=== PATIENT | female | born 1955 | race Caucasian/White ===

== ENCOUNTER 2017-01-05 10:10 | Day surgery (SDC) | payer OTHER ==
[~2017-01-05] VITALS: Ht 162.6 cm; Wt 101.5 kg
[~2017-01-05 10:10] MED LIST: ASPI81TA11 PO; ATEN-100 PO; HYDR-3129 PO; LEVO150T7 PO; PERC5TAB12 PO; XANA1TAB6 PO
[2017-01-05 11:08] VITALS: BP 116/71; PULSE 64; RESP 17; TEMP 98.7; O2SAT 96
[2017-01-05] MEDS ORDERED: LEVO.1 PO (11:13)
[2017-01-05] MEDS ORDERED: ATEN25TA PO (11:13)
[2017-01-05] MEDS ORDERED: PRED10 PO (11:13)
[2017-01-05] MEDS ORDERED: ASPI81CH CHEW (11:13)
[2017-01-05] MEDS ORDERED: LORA-474 PO (11:14)
[2017-01-05] MEDS ORDERED: HYDR-3366 PO (11:14)
[2017-01-05] MEDS ORDERED: ASPIRIN 81 MG CHEW TAB PO ONE (11:15)
[2017-01-05] MEDS ORDERED: NS 1000P @30 MLS/HR (KVO) IV SCH (11:15)
[2017-01-05 11:27] LABS: AUTOMATED NEUTROPHIL # 5.2 TH/MM3 (1.8-7.7); BASOPHIL % 0.1 % (0.0-2.0); HEMATOCRIT 40.6 % (35.0-46.0); LYMPH % 11.2 % (9.0-44.0); LYMPHOCYTE # 0.7 TH/MM3 (1.0-4.8); MEAN CELL VOLUME 95.7 FL (80.0-100.0); MEAN CORPUSCULAR HEMOGLOBIN 32.3 PG (27.0-34.0); MEAN CORPUSCULAR HGB CONC 33.8 % (32.0-36.0); NEUT % 84.7 % (16.0-70.0); PLATELET COUNT 94 TH/MM3 (150-450); RED BLOOD COUNT 4.25 MIL/MM3 (4.00-5.30); RED CELL DISTRIBUTION WIDTH 13.2 % (11.6-17.2); WHITE BLOOD COUNT 6.2 TH/MM3 (4.0-11.0)
[2017-01-05 11:31] LABS: HEMO FLAGS AUTO DIFF
[2017-01-05 11:36] LABS: APTT (PATIENT) 29.2 SEC (24.3-30.1); PROTHROMBIN TIME - PATIENT 11.2 SEC (9.8-11.6)
[2017-01-05 11:53] LABS: BICARBONATE 24.5 MEQ/L (21.0-32.0); POTASSIUM 4.3 MEQ/L (3.5-5.1)
[2017-01-05] MEDS ORDERED: FAMOTIDINE 20 MG/2 ML VIAL IV PUSH SCH (12:00)
[2017-01-05] MEDS ORDERED: diphenhydrAMINE HCL 50 MG/ML VIAL IV PUSH SCH (12:00)
[2017-01-05 12:01] LABS: PLATELET ESTIMATE SMEAR LOW (NORMAL); PLATELET MORPHOLOGY NORMAL (NORMAL); SCAN/DIFF AUTO DIFF CONFIRMED
[2017-01-05] MEDS ORDERED: IOHEXOL 350 MG/ML 50 ML BTL (for Cath Lab) OTHER ONE (14:29)
[2017-01-05] MEDS ORDERED: HEPARIN-NS/PF INJ 1,000 ML ONE (14:34)
[2017-01-05] MEDS ORDERED: diphenhydrAMINE HCL 50 MG/ML VIAL ONE (14:38)
[2017-01-05] MEDS ORDERED: MIDAZOLAM HCL 2 MG/2 ML VIAL ONE (14:38)
[2017-01-05] MEDS ORDERED: FAMOTIDINE 20 MG/2 ML VIAL ONE (14:38)
[2017-01-05] MEDS ORDERED: SODIUM CHLORIDE 0.9% FLUSH 10 ML FLUSH PRN (15:30)
[2017-01-05] MEDS ORDERED: BACITRACIN OINT 0.9 GM PKT TOP ONE (15:30)
[2017-01-05] MEDS ORDERED: MISC INFORMATION XX ONE (15:30)
--- NOTE | 2017-01-05 15:38 | CATHPROC ---
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 LV LV Ventricle Wire insertion Fem Art (right) Femoral Art Wire insertion Fem Vein (right) Femoral Vein Equipment Time Balance Wheel Hand Filer Description Size Mfg Part Number Used/Scraped CATHETER, FR5 SWAN SHELBY 13:59 [employer] FR 5 [id number] *[id number] Used MONITOR TRANSDUCER, TRUWAVE [id number] 13:59 JEREZ MONTERO * Used W/STOCKCOCK *[id number] [id number] *[id number] [id number] *[id number] 13:59 [employer] PACK, CCL CUSTOM * Used *[id number] 13:59 [employer] PACER PEN, SKIN DUAL W/ RULER * Used *[id number] 13:59 [employer] MEDICAL SHEATH, FR5.5 PRELUDE 11CM FR 5.5 Used 038ACT# [id number] 13:59 [employer] MEDICAL WIRE, 3MMJ .035 180CM 180CM Used *[id number] 13:59 NAMIC MANIFOLD, 4 PORT * Used *[id number] 13:59 [employer] OMNIPAQUE, 350 MG, 150ML 150ML [id number] Used 15:06 [employer] OMNIPAQUE, 350 MG, 150ML 150ML [id number] Used [id number] 13:59 [employer] BLANKET,WARM AIR CCL * Used *[id number] 13:59 [employer] MEDICAL SHEATH, FR4 TERUMO (10CM) FR 4 Used *[id number] History: Current Medications Medication Dosage/Unit Route Frequency Last Date/Time Taken ASA PREDNISONE Beta Andrew Synthroid ATIVAN History: Allergies Allergy Reaction Sulfa (Sulfonamide Antibiotics) iohexol diatrizoate meglumine oxytetracycline Hives erythromycin base gadoteridol gadodiamide meperidine penicillin G iodixanol gadobenic acid cortisone History: Risk Factors Family History of Hypertension Dyslipidemia Previous AR Previous Heart Failure Premature CAD Yes Yes No No Yes Prior Valve Prior PCI Prior CABG Surgery No No No Cerebrovascular Peripheral Artery Chronic Lung On Dialysis Diabetes Disease Disease Disease No No No No No History: Symptoms/Diagnosis Selection Items Chest pain History: Stress Tests Stress or Imaging Studies Performed No History: Other Disease Selection Items HTN History: Other Current Smoker Method Quit Packs a Day Years Used Pack Years No Cigarettes 6 Years Ago 1 20 20 Labs Hgb (g/dl) Hct (%) RBC (MIL/MM3) WBC (l/cumm) Platelets (thousands) 11.60-17.00 35.00-51.00 4.00-5.90 4.00-11.00 150.00-450.00 13.7 40.6 4.2 6.2 94 Glucose (mg/dl) BUN (mg/dl) Creatinine (mg/dl) BUN:Creatinine (1:x) 74.00-106.00 7.00-18.00 0.50-1.30 10.00-20.00 108 15 0.9 16.7 Na (meq/l) K (meq/l) Cl (meq/l) CO2 (mmol/L) Ca (mg/dl) 136.00-145.00 3.50-5.10 98.00-107.00 21.00-32.00 8.50-10.10 141 4.3 107 24.5 8.8 PT (sec) PTT (sec) INR (PTT:PT) 9.80-11.60 24.30-30.10 0.90-1.10 11.2 29.2 1 CPK-MB (ng/ML) 0.50-3.60 Not Drawn Medication Medication Total Dose (Bolus/Oral) Medication Total Dosage/Unit 1% XYLOCAINE 20 mL BENADRYL 50 mg FENTANYL 25 mcg PEPCID 20 mg VERSED 1 mg Medications (Bolus/Oral) Medication Time Given Dosage/Unit Administered By Reason BENADRYL 01/05/2017 2:44:09 PM 50 mg Alesia Yadav 50 mg BENADRYL given in lab by Alesia Yadav, MOE via Peripheral IV. PEPCID 01/05/2017 2:48:04 PM 20 mg Esther Leyva 20 mg PEPCID given in lab by Esther Leyva, RN in Left Antecubital via Peripheral IV. FENTANYL 01/05/2017 2:52:56 PM 12.5 mcg Esther Leyva 12.5 mcg FENTANYL given in lab by Esther Leyva, RN via Peripheral IV. VERSED 01/05/2017 2:53:11 PM 1 mg Esther Leyva 1 mg VERSED given in lab by Esther Leyva, RN via Peripheral IV. 1% XYLOCAINE 01/05/2017 2:54:07 PM 20 mL Haja, David 20 mL 1% XYLOCAINE given in lab by David Smyth in Right Groin via Subcutaneous. FENTANYL 01/05/2017 3:03:00 PM 12.5 mcg David Smyth 12.5 mcg FENTANYL given in lab by David Smyth via Peripheral IV. Medication (Drip) Medication Time Given Dosage/Unit Concentration/Unit Diluent (ml) Solution IV Solutions 01/05/2017 2:38:47 PM 0 mL (IV) 500 NaCl .9 Patient arrived on IV Solutions in Left Antecubital via Peripheral IV. Pump/Drip Flow = 20 ml/hr usin g NaCl .9. Initial Case Assessment Cardiovascular HR Rhythm NIBP Chest Pain 71 reg 163/92 0 Edema Present Skin color Skin None Normal Warm Circulatory - Right Pulses Dorsalis Pedis Femoral 2 2 Scale (0,1,2,3,4,d) Circulatory - Left Pulses Dorsalis Pedis Femoral 3 2 Scale (0,1,2,3,4,d) Circulatory - Lower Extremities Color Lower Right Color Lower Left Normal Normal Neurological State Oriented to time-place- Alert Moves all extremities person Respiration - General Respiration Rate SpO2 (%) (B/min) 12 98 Final Case Assessment Cardiovascular HR Rhythm NIBP 77 reg 162/82 Edema Present Skin color Skin None Normal Warm Circulatory - Right Pulses Dorsalis Pedis Femoral 2 2 Scale (0,1,2,3,4,d) Circulatory - Left Pulses Dorsalis Pedis Femoral 3 2 Scale (0,1,2,3,4,d) Circulatory - Lower Extremities Color Lower Right Color Lower Left Normal Normal Neurological State Oriented to time-place- Alert Moves all extremities person Respiration - General Respiration Rate SpO2 (%) (B/min) 13 95 Chronological Log Time Study Chronological Log 14:29:44 Patient arrived via Bed. Vitals capture started with the following parameters, Patient=Adult, Interval=5 min, Initial Pr falqun=271 mmHg, 14:35:39 Deflation Rate=5 mmHg, Cuff placed on Left Arm 14:35:52 Patient Name, D.O.B, / Armband Verified By R.N. 14:35:54 Consent signed and verified 14:35:58 Pre-op and post- op instructions given; patient acknowledges understanding of instructions. 14:35:58 Verbal Stimulation=2 Physical Stimulation=2 Airway=2 Respiration=2 TOTAL=8. (0=absent, 1=li mited, 2=present) 14:36:22 HR=66 bpm, MRSW=351/92 mmhg, SpO2=97.0 %, Resp=8 B/min, Pain=0, Rakan=10, Squires=2 14:36:37 Patient has been NPO for More than 6Hrs. 14:36:39 Skin Breakdown-large bruise right hand 14:37:55 pt premedicated with 60 mg prednisone yesterday and today 14:38:39 A # 20 IV was noted in the Antecubital (left). Grade = 0 14:38:47 Patient arrived on IV Solutions in Left Antecubital via Peripheral IV. Pump/Drip Flow = 20 ml/hr using NaCl .9. 14:39:16 History and physical on the chart or being dictated. Assessment: Initial Case, HR=71 BPM, Rhythm=reg, VDNM=554/92 mmhg, Chest Pain=0, Edema=None, Co cheo=Normal, Skin = Warm Right Pulses: Ramírez Ped=2, Femoral=2 Left Pulses: Ramírez Ped=3, Femoral=2 14:39:17 Lower Right Extremities: Color=Normal Lower Left Extremities: Color=Normal Neurological: State=Alert, Ox3, MARSHALL Respiration: Resp=12 B/min, SpO2=98 % 14:40:05 Bilateral groins prepped with 2% chlorhexidine, and with a 3 min. waiting time. 14:41:27 HR=75 bpm, HLCA=228/67 mmhg, SpO2=98.0 %, Resp=19 B/min, Pain=0, Rakan=10, Squires=2 14:42:52 Reference ECG taken 14:44:09 50 mg BENADRYL given in lab by Alesia Yadav, MOE via Peripheral IV. 14:45:00 Pressure channel 1 zeroed. 14:47:09 HR=72 bpm, SSHQ=317/84 mmhg, SpO2=98.0 %, Resp=14 B/min, Pain=0, Rakan=10, Squires=2 14:48:04 20 mg PEPCID given in lab by Esther Leyva, MOE in Left Antecubital via Peripheral IV. 14:50:48 MD arrived. 14:52:19 HR=80 bpm, EMIX=413/77 mmhg, SpO2=97.0 %, Resp=17 B/min, Pain=0, Rakan=10, Squires=2 14:52:56 12.5 mcg FENTANYL given in lab by Esther Leyva, MOE via Peripheral IV. 14:53:11 1 mg VERSED given in lab by Esther Leyva, MOE via Peripheral IV. Time Out. Correct patient, correct procedure,correct physician, ,power injector not loaded with contrast with surgical 14:53:48 team present. Time Out Concurred by MD, individual staff and MARKETING DEVELOPMENT SPECIALIST in procedure 14:53:59 Case Start 14:54:00 Verbal Stimulation=2 Physical Stimulation=2 Airway=2 Respiration=2 TOTAL=8. (0=absent, 1=li mited, 2=present) 14:54:07 20 mL 1% XYLOCAINE given in lab by David Smyth in Right Groin via Subcutaneous. 14:55:33 Access site was Right Femoral Artery. 14:55:41 A wire was inserted via Fem Art (right). 14:55:45 A SHEATH, FR4 TERUMO (10CM) FR 4 was advanced into the Fem Art (right) using the Percutaneo us technique. 14:56:21 Saturation: Site=Ao (Aorta) , O2=97.3 %, Hgb=13.7 gm/dl, Condition=Condition 1. Used in vinicio culation. 14:56:28 HR=76 bpm, WMEE=939/74 mmhg, SpO2=95.0 %, Resp=19 B/min, Pain=0, Rakan=10, Squires=2 14:58:12 Access site was Right Femoral Vein. 14:58:16 A wire was inserted via Fem Vein (right). 14:58:31 A SHEATH, FR5.5 PRELUDE 11CM FR 5.5 was advanced into the Fem Vein (right) using the Percut aneous technique. 14:59:01 A CATHETER, FR5 SWAN SHELBY MONITOR FR 5 was inserted via Fem Vein (right) Recorded Pressure: PCW, HR=69, Condition=Condition 1 15:00:19 (Pulmonary Capillary Wedge) PCW Recorded Pressure: MPA, HR=74, Condition=Condition 1 15:00:50 (Main Pulmonary Artery) MPA 15:01:01 Saturation: Site=PA (Pulmonary Artery) , O2=83 %, Hgb=13.7 gm/dl, Condition=Condition 1. Us ed in calculation. 15:01:25 HR=74 bpm, PTOX=623/74 mmhg, SpO2=94.0 %, Resp=14 B/min, Pain=0, Rakan=10, Squires=2 Recorded Pressure: RV, HR=77, Condition=Condition 1 15:01:45 (Right Ventricle) RV 39/5/12 Recorded Pressure: RA, HR=67, Condition=Condition 1 15:01:57 (Right Atrium) RA 13 15:02:33 Saturation: Site=RA (Right Atrium) , O2=80.6 %, Hgb=13.7 gm/dl, Condition=Condition 1. Used in calculation. 15:03:00 12.5 mcg FENTANYL given in lab by David Smyth via Peripheral IV. 15:03:15 [place] Catheter Removed A JR 4.0 INFINITI CATHETER FR 4 was advanced over a wire. OMNIPAQUE, 350 MG, 150ML 150ML was us ed for 15:03:29 injections. Recorded Pressure: LV, HR=79, Condition=Condition 1 15:04:11 (Left Ventricle) LV 152/9/16 15:04:15 The LV was manually injected with 8 cc's and visualized. OMNIPAQUE, 350 MG, 150ML 150ML use d. Recorded Pressure: LV, Ao, HR=76, Condition=Condition 1 15:04:45 (Left Ventricle) LV 147/4/15, (Aorta) Ao 147/75/107 15:05:07 The RCA was injected and visualized at various angles. OMNIPAQUE, 350 MG, 150ML 150ML used . 15:05:24 Catheter was removed A JL 4.0 INFINITI CATHETER FR 4 was advanced over a wire. OMNIPAQUE, 350 MG, 150ML 150ML was us ed for 15:05:40 injections. Recorded Pressure: Ao, HR=76, Condition=Condition 1 15:06:20 (Aorta) Ao 144/75/105 15:06:26 HR=74 bpm, HBND=657/82 mmhg, SpO2=95.0 %, Resp=16 B/min, Pain=0, Rakan=10, Squires=2 15:06:38 The LCA was injected and visualized at various angles. OMNIPAQUE, 350 MG, 150ML 150ML used . 15:08:03 Catheter was removed Assessment: Final Case, HR=77 BPM, Rhythm=reg, VMYM=608/82 mmhg, Edema=None, Color=Normal, Skin = Warm Right Pulses: Ramírez Ped=2, Femoral=2 Left Pulses: Ramírez Ped=3, Femoral=2 15:08:09 Lower Right Extremities: Color=Normal Lower Left Extremities: Color=Normal Neurological: State=Alert, Ox3, MARSHALL Respiration: Resp=13 B/min, SpO2=95 % 15:08:40 Case End 15:08:44 Catheter(s) removed without difficulty 15:11:25 HR=75 bpm, KJHZ=180/80 mmhg, SpO2=95 %, Resp=15 B/min, Pain=0, Rakan=10, Squires=2 15:16:25 HR=72 bpm, ATFN=450/84 mmhg, SpO2=96.0 %, Resp=11 B/min, Pain=0, Rakan=10, Squires=2 15:18:55 Sheath removed; pressure applied to access site. L.STONE 15:19:00 VENOUS Sheath removed; pressure applied to access site. Amita CEDEÑO 15:21:26 HR=70 bpm, CISL=518/76 mmhg, SpO2=95 %, Resp=14 B/min, Pain=0, Rakan=10, Squires=2 15:26:27 HR=71 bpm, DZUX=276/82 mmhg, SpO2=93 %, Resp=16 B/min, Pain=0, Rakan=10, Squires=2 15:31:26 HR=74 bpm, LQRE=648/78 mmhg, SpO2=93.0 %, Resp=15 B/min, Pain=0, Rakan=10, Squires=2 15:37:06 HEMASTASIS ACHEIVED 15:37:22 HR=71 bpm, YYCC=613/76 mmhg, SpO2=96.0 %, Resp=18 B/min, Pain=0, Rakan=10, Squires=2 End Study - Contrast Media Used In Study Contrast Total Opened (mL) Total Used (mL) Total Wasted (mL) Omnipaque 25 25 0 End Study - Maximum Contrast Load Max Contrast Load (mL) 563.9 End Study - Radiation Exposure Fluoro Time (minutes) 1.8 End Study - Sheaths Sheaths Pulled By Sheath Hold Time (min) Ladan Feliciano End Study - Patient Disposition Complications Transferred To No Outpatient Bed
[2017-01-05] MEDS ORDERED: ACETAMINOPHEN/HYDROcodone 325 MG/10 MG TAB PO STA (16:33)
[2017-01-05] MEDS ORDERED: LORazepam 1 MG TAB PO PRN (16:45)
[2017-01-05] MEDS ORDERED: ASPIRIN 81 MG CHEW TAB PO SCH (16:56)
[2017-01-05] MEDS ORDERED: ATENOLOL 25 MG TAB PO SCH (16:57)
[2017-01-05] MEDS ORDERED: ACETAMINOPHEN/HYDROcodone 325 MG/10 MG TAB PO PRN (20:00)
[2017-01-05] MEDS ORDERED: SODIUM CHLORIDE 0.9% FLUSH 10 ML FLUSH SCH (21:00)
--- NOTE | 2017-01-05 23:13 | MA ---
cc: SRINATH PETERS M.D. DATE: 01/05/2017 PROCEDURE PERFORMED Left heart catheterization Right heart catheterization Left ventriculography Coronary angiography INDICATIONS New onset cardiac symptoms of chest pain at rest, dyspnea on exertion, unstable angina, [place] Cardiovascular Society, class 4 angina, [place] Heart Associated, class 2, congestive heart failure, orthopnea, preop noncardiac surgery, history of sarcoidosis of the lung. PROCEDURE The patient was brought to the cardiac catheterization lab, prepped and draped in the usual sterile fashion. 10 cc of 1% lidocaine was used to locally anesthetize the right common femoral artery. A 4-Monegasque sheath successfully placed in the right common femoral artery. A 5-Monegasque sheath placed in the right common femoral vein. Right heart catheterization was performed first with the following findings: Pulmonary capillary wedge pressure 19/26/17. B-wave was 26 mmHg. PA pressure 34/16/25. RV pressure 39/5/12. RA pressure 13/10-8 Femoral artery sat on room air 97.3%. PA sat on room air 83%. RA sat on room air 80.6%. Cardiac output by Shelly is 9.6 liters per minute. Cardiac index by Shelly 4.7 liters per meter square per minute. SVR 823.5 dyne. Left heart catheterization was then performed with a 4 Monegasque, JR4, JL4 catheter, with the following findings: LV pressure is 140/3-7, EF 65%. The right coronary is nondominant. No significant disease angiographically. Left circumflex was a large dominant vessel. No obvious significant coronary artery disease. It gives off a small marginal vessel in the mid segment which has no significant obstructive disease. A second obtuse marginal vessel comes off the [id number] left circ which is a small to medium size vessel with no significant obstructive disease. There is a medium size to large size distal posterolateral artery with no significant obstructive disease and the left PDA has no significant obstructive disease. The LAD is a transapical vessel with no significant obstructive disease. First diagonal artery is a medium-sized vessel with no significant obstructive disease. CONCLUSION 1. Angiographically no significant coronary disease in a left dominant system as detailed above. 2. Normal LV systolic function, ejection fraction 65%. 3. Mildly elevated PA pressures detailed above. 4. Pulmonary capillary wedge B-wave to 26 mmHg suggestive of mitral valve regurgitation. 5. Normal LV pressures (140/3-7). 6. EF 65%. Cardiac index by Shelly is 4.7 liters per meter square per minute. RECOMMENDATIONS: Recommend evaluation for noncardiac etiology of dyspnea. MD ARIADNA Ambrocio/DARVIN /3:12 PM /10:54 PM
[2017-01-06] MEDS ORDERED: LEVOTHYROXINE SODIUM 100 MCG TAB PO SCH (06:00)
[2017-01-06] MEDS ORDERED: predniSONE 20 MG TAB PO SCH (09:00)
--- NOTE | 2017-01-06 17:06 | EKG ---
Date Performed: 01/05/2017 Time Performed: 11:24:46 PTAGE: 61 years EKG: Sinus rhythm . Since previous tracing, no significant change noted Normal ECG PREVIOUS TRACING : 11/25/2015 19.26 DOCTOR: Cherry Quiroz Interpretating Date/Time 01/06/2017 17:02:46
== END 2017-01-05 18:33 | disposition home or self-care (01) ==
LOC: HDOC 10:10 → HDIC 10:11 → HDOC 18:33
PROVIDERS: ATTEND Internal Medicine Interventional Cardiology
DX: R06.09 Other forms of dyspnea (principal); I20.0 Unstable angina; I11.0 Hypertensive heart disease with heart failure; I50.9 Heart failure, unspecified; I65.29 Occlusion and stenosis of unspecified carotid artery; R06.01 Orthopnea; D86.0 Sarcoidosis of lung; K76.0 Fatty (change of) liver, not elsewhere classified; Z87.891 Personal history of nicotine dependence; Z79.82 Long term (current) use of aspirin; Z79.899 Other long term (current) drug therapy
CPT/HCPCS: 80048; 82810; 85025; 85610; 85730; 93005; 93453; C1769; C1893; J1200; J1644; J2250; J3010; Q9967